=== PATIENT | female | born 1940 | race Caucasian/White ===

== ENCOUNTER 2016-09-09 19:27 | Emergency (ER) | payer OTHER ==
--- NOTE | ~2016-09-09 | CR20 ---
[facility]. [facility] A Service of [facility] & [facility] RADIOLOGY TEXT RESULTS PATIENT: JANELLE BENITES LOCATION: SED : 40 UNIT #: [id number] AGE: [address]: GEORGE VARNER SEX: F ORDER DR: [id number] [place] [id number] E MR#: [id number] Acc #: [id number] NAME: JANELLE BENITES : 1940 SEX: F STUDY DATE/TIME: 09/09/2016 20:38 UNIT: SED ROOM: STUDY DESCRIPTION: CR Ankle Min 3 Views Lt Attending Physician: George Varner Aprn Ordering Physician: George Varner Aprn Primary Care Physician: James Garcia M.D. MEDICAL IMAGING REPORT This report is preliminary unless electronic signature is present. EXAM Left ankle, 3 views INDICATIONS Left ankle pain today. No comparisons. FINDINGS Ankle mortise intact. Calcaneal spurring. No fracture. IMPRESSION No fracture. Dictated by... Víctor Orr M.D. THIS IS AN ELECTRONICALLY VERIFIED REPORT Víctor Orr M.D. at 09/11/2016 7:27 AM REBECCA/isaura TD: 09/10/2016 01:57 JOB #: [id number] MEDICAL IMAGING REPORT Page 1 of 1
--- NOTE | ~2016-09-09 | CR126 ---
[facility]. [facility] A Service of [facility] & [facility] RADIOLOGY TEXT RESULTS PATIENT: JANELLE BENITES LOCATION: SED : 40 UNIT #: [id number] AGE: [address]: GEORGE VARNER SEX: F ORDER DR: [id number] [place] [id number] E MR#: [id number] Acc #: [id number] NAME: JANELLE BENITES : 1940 SEX: F STUDY DATE/TIME: 09/09/2016 20:38 UNIT: SED ROOM: STUDY DESCRIPTION: CR Foot Complete Min 3 View Lt Attending Physician: George Varner Aprn Ordering Physician: George Varner Aprn Primary Care Physician: James Garcia M.D. MEDICAL IMAGING REPORT This report is preliminary unless electronic signature is present. EXAM Left foot, 3 views INDICATIONS Left foot pain today. No comparisons. FINDINGS Calcaneal spurring. Alignment normal. No evidence for fracture. IMPRESSION No evidence of fracture. Dictated by... Víctor Orr M.D. THIS IS AN ELECTRONICALLY VERIFIED REPORT Víctor Orr M.D. at 09/11/2016 7:27 AM REBECCA/isaura TD: 09/10/2016 01:56 JOB #: [id number] MEDICAL IMAGING REPORT Page 1 of 1
[~2016-09-09 19:27] MED LIST: ADVAIR; ADVAIR 1001 DISK W/D PO; ADVAIR INH; ALBUTEROL17 GM INH; ALLERGY INJECTIONS; ANTIVERT PO; CALCIUM 500 + D1 TAB PO; CLONAZEPAM0.5 MG PO; FLONASE 0.05% N16 G1; FLONASE 0.05% N16 G1 NS; FLONASE16 GM; FLOVENT IH; FLOVENT7.9 GM IN; FLOVENT7.9 GM INH; GARLIC1 CAP; GNP B-COMPLEX1 EACH PO; IBUPROFEN PO; LORTAB 5/500 TA1 TA1 PO; LUTEIN PO; MONTELUKAST SOD10 MG PO; MYLANTA LIQ355 ML; OMEPRAZOLE20 M2 PO; OSCAL; OSTEOBIFLEX; PANTOPRAZOLE SO40 MG PO; PATANASE30.5 GM; PEPCID PO; PRAVACHOL20 MG; PRAVASTATIN SOD20 MG PO; PROTONIX PO; PROZAC PO; REFRESH5 ML OU; RESTASIS32 EA OP; RESTASIS32 EA OU; SINGULAIR PO; ZYRTEC-D T1 TAB.SR . PO; [UNRECOGNIZED DRUG - MIXTURE] PO
[2016-09-09] MEDS ORDERED: SINGULAIR (19:35)
[2016-09-09] MEDS ORDERED: PRAVACHOL (19:35)
[2016-09-09] MEDS ORDERED: PROTONIX (19:36)
[2016-09-09] MEDS ORDERED: PRILOSEC (19:39)
== END 2016-09-09 21:46 | disposition home or self-care (01) ==
LOC: SED 19:27
DX: S93.402A Sprain of unspecified ligament of left ankle, initial encounter (principal); S90.32XA Contusion of left foot, initial encounter; J45.909 Unspecified asthma, uncomplicated; K21.9 Gastro-esophageal reflux disease without esophagitis; Z88.5 Allergy status to narcotic agent; E78.00 Pure hypercholesterolemia, unspecified; Z88.7 Allergy status to serum and vaccine; X50.1XXA Overexertion from prolonged static or awkward postures, initial encounter
CPT/HCPCS: 29540; 73610; 73630; 99283